=== PATIENT | male | born 1965 | race Caucasian/White ===

== ENCOUNTER → 2023-11-20 06:28 | Day surgery (SDC) | payer BC, SELFPAY | LOC: GI 06:28 | PROVIDERS: ATTENDING PHYSICIAN Internal Medicine Gastroenterology | DX: Z12.11 Encounter for screening for malignant neoplasm of colon (principal); K64.8 Other hemorrhoids; K63.5 Polyp of colon; D12.8 Benign neoplasm of rectum; K62.1 Rectal polyp | CPT/HCPCS: 45385; 45381; 45380; 88305 ==

== ENCOUNTER 2024-01-25 23:06 | Emergency (ER) | payer BC, SELFPAY ==
[2024-01-25 23:07] VITALS: BMI 24.0
[2024-01-25 23:12] VITALS: BP 112/77
[2024-01-26 02:04] VITALS: BP 136/96
--- NOTE | 2024-01-26 02:11 | ED.GENMED ---
History of Present Illness
General
Chief Complaint: DVT/Possible Blood Clot
Source: patient
Exam Limitations: none
Time Seen by Provider: 01/26/24 01:39
Nursing documentation reviewed up to this point in time: agreed with
History of Present Illness
History of Present Illness:
58-year-old male with past medical history of trigeminal neuralgia, Joe's thyroiditis presenting to the emergency department today with concerns of left posterior thigh pain over the past week. Denies any specific injuries no redness or
warmth no chest pain shortness of breath or additional concerns. No history of blood clots recent trauma surgery or immobilization.
Past History
Past History
ED Past Medical History: None
ED Past Surgical History: None
Patient has exhibited threatening behavior?: No
Social History
Tobacco: Smoker
Alcohol: None
Drug: None
Employment: Employed
Review of Systems
Review of Systems
Allergies reviewed?: Yes
All Other Systems: ROS reviewed and negative except as documented in HPI and ROS
Phy Exam
Physical Exam
Physical Exam:
GENERAL: Alert , in no apparent distress
EYE: pupils equal and reactive
NECK: Supple, no significant adenopathy.
ENT: o/p clr, mmm.
CARDIAC: Regular rate and rhythm .
LUNGS: Clear breath sounds bilaterally, no acute respiratory distress, no wheezes/rales/rhonchi
ABDOMEN: Soft, without focal tenderness, no r/g, no cvat
NEUROLOGICAL: Alert and oriented, no focal neuro deficits
SKIN: Warm and dry, skin intact.
MUSCULOSKELETAL: No edema, well perfused. Good range of motion and strength of the lower extremities bilaterally
PSYCH: Normal and appropriate interaction.
Course
Orders/Labs/Results
Orders:
Orders
01/26/24 00:08
US Periph Venous LOWER Ext LT Urgent
Comment:
Reason For Exam: Pain hamstring area, r/o dvt
Vital Signs
Initial and Last Documented VS:
Initial Vital Signs
Temp Pulse Resp BP Pulse Ox
98.0 F 83 18 112/77 98
01/25/24 23:12 01/25/24 23:12 01/25/24 23:12 01/25/24 23:12 01/25/24 23:12
Last Documented Vital Signs
Temp Pulse Resp BP Pulse Ox
98.0 F 74 18 136/96 99
01/25/24 23:12 01/26/24 02:04 01/26/24 02:04 01/26/24 02:04 01/26/24 02:05
MDM/Problems Addressed
MDM/Problems Addressed:
66-year-old male presenting to the emergency department today with concerns of leg pain week. Normal vital signs on arrival good range of motion and strength of the leg no redness or warmth no signs of infection normal distal pulses. Ultrasound
without emergent findings. No evidence of emergent pathology at this time. Stable for outpatient follow-up. Return precautions given.
*Critical Care Note
Total Time (30-74mins, 75-104mins- exclusive of procedures): Not Applicable
ED Attending Note
-
Portions of this chart may have been created with voice recognition software.� Occasional wrong word or��sound alike� substitutions may have occurred due to the inherent limitations of voice recognition software.
Discharge Plan
Departure
Patient Disposition: Home (Routine Discharge)
Date of Disposition: 01/26/24
Time of Disposition: 02:25
Patient with high blood pressure during this ER visit?: No
Condition: Good
Covid-19: Not Applicable
Discharge Problem:
Leg pain
Prescriptions:
No Action
gabapentin 300 mg capsule
300 mg PO TID PRN (Reason: numbness, tingling) Qty: 14 0RF
Referrals:
Shahbaz Donahue MD [Active] - Follow up in 5-7 days
Activity Restrictions/Additional Instructions:
You came to the emergency department with concerns of leg pain. You had a reassuring assessment here. Please follow-up as an outpatient with primary care doctor or vascular. Return to the emergency department for any worsening, new or concerning
symptoms.
Interventions
Interventions:
*Risk Screen - Suicide Last Done: 01/25/24 23:12
*General Assessment Last Done: 01/25/24 23:12
*Neglect/Abuse Screening Last Done: 01/25/24 23:12
*ED COVID-19 Vaccine History Last Done: 01/26/24 02:05
ED- Cardiac Assessment Last Done: 01/26/24 02:05
ED- Pulmonary Assessment Last Done: 01/26/24 02:05
ED-Peripheral Vascular Assessment Last Done: 01/26/24 02:05
ED-Skin Assessment Last Done: 01/26/24 02:05
Discharge Date and Time
Print Language: FIJIAN
== END 2024-01-26 02:42 | disposition home or self-care (01) ==
LOC: EMR 23:06
PROVIDERS: EMERGENCY PHYSICIAN Emergency Medicine; FAMILY PHYSICIAN Family Medicine
DX: M79.605 Pain in left leg (principal); F17.200 Nicotine dependence, unspecified, uncomplicated
CPT/HCPCS: 99284; 93971